=== PATIENT | male | born 1965 | race Caucasian/White ===

== ENCOUNTER → 2019-04-07 | Outpatient (CLI) | payer OTHER, BC ==
--- NOTE | 2019-04-08 22:18 | CT ---
EXAMINATION TYPE: CT iac w con DATE OF EXAM: 04/07/2019 COMPARISON: None HISTORY: 53-year-old male Ear canal mass. Hemangioma. Rule out glomus jugulare. CT DLP: 289 mGycm Automated exposure control for dose reduction was used. TECHNIQUE: Contiguous high-resolution axial scanning of the temporal bones performed with IV Contras t, patient injected with 100 ml mL of Isovue 300. Coronal reformatted images obtained. FINDINGS: There is no abnormality of visualized intracranial structures. Dominant left vertebral artery. The external auditory canals appear patent. The middle ear cavities and mastoid air cells appear well-pneumatized. Adjacent dural venous sinuses enhance normally. There is no abnormality of middle ear ossicles. The round and oval windows are normal. The right jugular bulb is borderline high riding, seen at the level of the basal turn of the cochlea and approximately 2 mm below the floor of the internal auditory canal. No evident dehiscence of the s igmoid plate. No evident enhancing lesion within the jugular foramen. No dehiscence of the superior semicircular canals. There is otherwise no abnormality of bony labyrint hs. The cochlear aqueducts are well visualized. No abnormal enlargement of the vestibular aqueducts. The facial nerve canal is normal bilaterally. The internal auditory canal and meati are symmetrical bilaterally. There is no evidence of fractures. Mild/moderate mucosal thickening maxillary sinuses and more moderate within the ethmoid air cells, pa rticularly on the left. Additional mucosal retention cyst or polyp posterior left ethmoid air cells. Orbits and globes appear intact. Reformatted images confirm above findings. IMPRESSION: 1. Borderline high riding right jugular bulb without evidence for dehiscence. 2. No enhancing mass identified within the external auditory canals, middle ear cavity, or jugular fo ramen. 3. Moderate chronic ethmoid sinus disease.
== END | disposition home or self-care (01) ==
LOC: RADCTMAIN 08:02
PROVIDERS: ATTEND Otolaryngology
DX: H61.899 Other specified disorders of external ear, unspecified ear (principal)
CPT/HCPCS: 70481; Q9967

== ENCOUNTER → 2023-09-12 | Outpatient (CLI) | payer BC ==
--- NOTE | 2023-09-12 16:55 | CTL ---
EXAMINATION TYPE: CT Low Dose Lung DATE OF EXAM ORDERED: 09/12/2023 HISTORY: . Lung cancer screening CT DLP: 120.[address] CTDI: 2.9 mGy Automated exposure control for dose reduction was used. COMPARISON: None TECHNIQUE: Low dose computed tomography scan was performed through the chest at 1 mm thick sections a nd reconstructed images in multiple planes at 1 mm and [address] DIAGNOSTIC QUALITY: Satisfactory FINDINGS: There is a 6-7 mm subpleural parenchymal nodule in the left lung base.. No other lung nodules are see n. There is no abnormal airspace/consolidative density or abnormal interstitial density. There is no pleural effusion, pleural thickening or pneumothorax. There is mild aneurysmal dilatation of descending thoracic aorta which is 4.1 cm. There is no mediastinal, hilar or axillary adenopathy. Limited scanning through the upper abdomen reveals no gross abnormality. No focal osseous lesions are seen. IMPRESSION: 1. BI-RADS Category 3 probably benign. Six-month follow-up CT thorax is recommended confirm stability of the left lower lobe pulmonary nodule. 2. No acute cardiopulmonary disease. 3. Mild fusiform aneurysmal dilatation of the ascending thoracic aorta which measures 4.1 cm.
--- NOTE | 2023-09-13 16:25 | US ---
EXAMINATION TYPE: US carotid duplex BILAT DATE OF EXAM: 09/12/2023 COMPARISON: NONE CLINICAL INDICATION: Male, 57 years old with history of I65.23 CAROTID STENOSIS; screen TECHNIQUE: Carotid duplex ultrasound examination. Indirect Doppler criteria was utilized. FINDINGS: EXAM MEASUREMENTS: RIGHT: Peak Systolic Velocity (PSV) cm/sec ----- Right CCA: 109 ----- Right ICA: 112 ----- Right ECA: 117 ICA/CCA ratio: 1.03 RIGHT: End Diastole cm/sec ----- Right CCA: 27 ----- Right ICA: 40.5 ----- Right ECA: 26.2 LEFT: Peak Systolic Velocity (PSV) cm/sec ----- Left CCA: 86.9 ----- Left ICA: 74.8 ----- Left ECA: 81.4 ICA/CCA ratio: 1.0 LEFT: End Diastole cm/sec ----- Left CCA: 26.2 ----- Left ICA: 23.2 ----- Left ECA: 21.4 VERTEBRALS (direction of flow): Right Vertebral: Antegrade Left Vertebral: Antegrade Rhythm: Normal [employer] NOTES: No significant stenosis seen IMPRESSION: Less than 50% stenosis of the bilateral carotid bifurcations. Criteria for Assigning % of Stenosis / Diameter reduction (Estimation based on the indirect measurements of the internal carotid artery velocities (ICA PSV). 1. Normal (no stenosis)=ICA PSV < 125 cm/s: ratio < 2.0: ICA EDV<40 cm/s. 2. Less than 50% stenosis=ICA PSV < 125 cm/s: ratio < 2.0: ICA EDV<40 cm/s. 3. 50 to 69% stenosis=ICA PSV of 125 to 230 cm/s: ration 2.0 ? 4.0: ICA EDV 40-100 cm/s. 4. Greater than 70% stenosis to near occlusion= ICA PSV > 230 cm/s: ratio > 4.0: ICA EDV > 100 cm/s. 5. Near occlusion= ICA PSV velocities may be low or undetectable: variable ratio and ICA EDV. 6. Total occlusion=unable to detect flow.
== END | disposition home or self-care (01) ==
LOC: RADCTMAIN 15:18
PROVIDERS: ATTEND Internal Medicine
DX: Z12.2 Encounter for screening for malignant neoplasm of respiratory organs (principal); I65.23 Occlusion and stenosis of bilateral carotid arteries; I71.21 Aneurysm of the ascending aorta, without rupture; F17.210 Nicotine dependence, cigarettes, uncomplicated
CPT/HCPCS: 71271; 93880

== ENCOUNTER → 2023-10-10 | Outpatient (CLI) | payer BC ==
--- NOTE | 2023-10-11 12:03 | CA ---
Transthoracic Echo Report Name: Ramon Whelan Age: 57 Gender: M : 1965 Exam Date: 10/10/2023 15:06 Exam Location: [facility] Ht (in): 70 Wt (lb): 178 Ordering Physician: Alee Dc MD Attending/Referring Phys: Sql Report Developer Adrianna Gross RDCS Procedure CPT: Indications: I71.20 THORACIC AORTIC ANEURYSM, WITHOUT RUPTURE, Cardiac Hx: Technical Quality: Contrast 1: Total Dose (mL): Contrast 2: Total Dose (mL): MEASUREMENTS (Male / Female) Normal Values 2D ECHO LV Diastolic Diameter PLAX 4.5 cm 4.2 - 5.9 / 3.9 - 5.3 cm LV Systolic Diameter PLAX 3.0 cm IVS Diastolic Thickness 0.7 cm 0.6 - 1.0 / 0.6 - 0.9 cm LVPW Diastolic Thickness 1.1 cm 0.6 - 1.0 / 0.6 - 0.9 cm LV Relative Wall Thickness 0.4 LVOT Diameter 2.6 cm LA Systolic Diameter LX 3.2 cm 3.0 - 4.0 / 2.7 - 3.8 cm LV Diastolic Volume MOD BP 86.4 cm??? 67 - 155 / 56 - 104 cm??? LV Systolic Volume MOD BP 56.2 cm??? 22 - 58 / 19 - 49 cm??? LV Ejection Fraction MOD BP 35.0 % >= 55 % LV Diastolic Volume MOD 4C 80.7 cm??? LV Systolic Volume MOD 4C 46.5 cm??? LV Ejection Fraction MOD 4C 42.4 % LV Diastolic Length 4C 7.9 cm LV Systolic Length 4C 6.3 cm LV Diastolic Volume MOD 2C 87.1 cm??? LV Systolic Volume MOD 2C 54.0 cm??? LV Ejection Fraction MOD 2C 38.0 % LV Diastolic Length 2C 8.4 cm LV Systolic Length 2C 8.2 cm LA Volume 31.8 cm??? 18 - 58 / 22 - 52 cm??? LA Volume Index 15.9 cm???/m??? 16 - 28 cm???/m??? DOPPLER AV Peak Velocity 91.3 cm/s AV Peak Gradient 3.3 mmHg AV Mean Velocity 65.8 cm/s AV Mean Gradient 1.9 mmHg AV Velocity Time Integral 14.6 cm LVOT Peak Velocity 81.4 cm/s LVOT Peak Gradient 2.7 mmHg LVOT Velocity Time Integral 13.1 cm LVOT Stroke Volume 69.6 cm??? LVOT Stroke Volume Index 35.0 ml/m??? AV Area Cont Eq vti 4.8 cm??? AV Area Cont Eq pk 4.7 cm??? MV Area PHT 4.4 cm??? Mitral E Point Velocity 48.9 cm/s Mitral A Point Velocity 72.2 cm/s Mitral E to A Ratio 0.7 MV Deceleration Time 174.4 ms PV Peak Velocity 65.1 cm/s PV Peak Gradient 1.7 mmHg FINDINGS Left Ventricle Left ventricular ejection fraction is estimated at 55-60%. Normal left ventricular systolic function with no obvious regional wall motion abnormalities. Right Ventricle Normal right ventricular size. Unable to estimate the right ventricular systolic pressure. Right Atrium Normal right atrial size. Left Atrium Normal left atrial size. Mitral Valve Trace mitral regurgitation. Aortic Valve Trileaflet aortic valve. Tricuspid Valve Trace tricuspid regurgitation. Pulmonic Valve No pulmonic regurgitation. Pericardium No pericardial effusion. Aorta Aorta at upper limits of normal. CONCLUSIONS Left ventricular ejection fraction is estimated at 55-60%. No obvious regional wall motion abnormalities. No significant valvular dysfunction Previewed by: Dr Rebel Paredes (Electronically Signed) Final Date: 11 October 2023 12:02
== END | disposition home or self-care (01) ==
LOC: RADECHMAIN 14:47
PROVIDERS: ATTEND Internal Medicine
DX: I71.20 Thoracic aortic aneurysm, without rupture, unspecified (principal)
CPT/HCPCS: 93306

== ENCOUNTER → 2023-10-20 | Outpatient (CLI) | payer BC ==
--- NOTE | 2023-10-21 10:49 | PE ---
EXAMINATION TYPE: PET CT fusion skull to thigh DATE OF EXAM: 10/20/2023 CLINICAL INDICATION:Male, 57 years old with history of R91.1 SOLITARY PULMONARY NODULE; TECHNIQUE: Following the intravenous administration of 10.89 mCi of F-18 FDG, whole body images are performed from the skull base to the midthigh. Images are reviewed on the computer in the coronal, axial, and sagittal planes. Reconstructed rotating images are created on independent workstation and reviewed on the computer. A non-contrast CT is performed in conjunction with the PET scan. Glucose level 101 mg/dL CT DLP: 500 mGycm, Automated exposure control for dose reduction was used. COMPARISON: CT 09/12/2023, PET/CT None, FINDINGS: Mediastinal SUV mean is 2.2. Hepatic parenchyma SUV mean is 3.1. SKULL BASE AND NECK: No suspicious radiotracer activity. CHEST, MEDIASTINUM, AND HILAR REGION: No suspicious radiotracer activity. Left lower lobe pulmonary nodule measuring 4 mm which is below the sensitivity for PET/CT the general area measures max SUV 1.0 which is below back on levels. ABDOMEN AND PELVIS: No suspicious radiotracer activity. MUSCULOSKELETAL STRUCTURES: No suspicious radiotracer activity. OTHER CT: Atherosclerosis of the carotid bifurcations. Severe coronary artery atherosclerosis. border line Hepatic steatosis. Normal. The prostate gland is enlarged. IMPRESSION: No suspicious radiotracer activity.Left lower lobe pulmonary nodule measuring 4 mm which is below the sensitivity for PET/CT. Follow-up CT chest recommended in 6 months to ensure stability.
== END | disposition home or self-care (01) ==
LOC: RADPETMAIN 06:14
PROVIDERS: ATTEND Internal Medicine
DX: R91.1 Solitary pulmonary nodule (principal)
CPT/HCPCS: 78815; A9552

== ENCOUNTER → 2024-02-13 | Outpatient (CLI) | payer BC ==
--- NOTE | 2024-02-13 14:38 | XR ---
EXAMINATION TYPE: XR cervical spine comp DATE OF EXAM: 02/13/2024 COMPARISON: NONE HISTORY: Pain TECHNIQUE: Four views are submitted. FINDINGS: The odontoid is intact. There are no compression deformities. The prevertebral soft tissue structur es are within normal limits. Severe multilevel degenerative disc disease with facet arthropathy and multilevel foraminal encroachment. Posterior spondylosis C5-6 and C6-C7. Canal stenosis not excluded. Partial fusion C3-C4 suspected posteriorly. Calcifications soft tissue the neck likely vascular related to the carotid arteries. Lung apices beka r. IMPRESSION: 1. Severe multilevel degenerative disc disease and facet arthropathy with multilevel foraminal encroa chment. Recommend follow-up MRI..
--- NOTE | 2024-02-13 14:41 | XR ---
EXAMINATION TYPE: XR shoulder complete RT DATE OF EXAM: 02/13/2024 COMPARISON: NONE HISTORY: Pain TECHNIQUE: Three views are submitted. FINDINGS: The osseous structures are intact. There is no acute fracture or dislocation. Mild AC joint arthropa thy with hypertrophic spurring of the acromion. Correlate for impingement. Mild glenohumeral joint ar thropathy. Chronic appearing sclerosis involving the upper margin of the humeral head may be on the b asis of prior trauma or reactive. IMPRESSION: 1. Mild glenohumeral and AC joint arthropathy. There is a spur extending from the acromion which may result in rotator cuff impingement or disease correlate clinically. Consider follow-up MRI.
== END | disposition home or self-care (01) ==
LOC: RADXRMAIN 14:12
PROVIDERS: ATTEND Internal Medicine
DX: M19.011 Primary osteoarthritis, right shoulder (principal); M47.812 Spondylosis without myelopathy or radiculopathy, cervical region; M50.30 Other cervical disc degeneration, unspecified cervical region
CPT/HCPCS: 72050

== ENCOUNTER → 2024-02-21 | Outpatient (CLI) | payer BC ==
--- NOTE | 2024-02-22 09:14 | MR ---
EXAMINATION TYPE: MR shoulder RT wo con DATE OF EXAM: 02/21/2024 COMPARISON: Right shoulder x-ray February 13, 2024 HISTORY: Right shoulder pain for 1 month. Impingement syndrome TECHNIQUE: Multiplanar, multisequence imaging of the right shoulder is performed without contrast. FINDINGS: Rotator Cuff: Increased signal in the supraspinatus and to a greater degree in the infraspinatus tend on. Heterogeneous increased signal with partial tearing of the superior fibers of the subscapularis t endon. Rotator cuff muscle bulk is preserved. Acromioclavicular Joint: Moderate to severe narrowing without significant spurring. No significant ca psular hypertrophy. Underlying fat plane maintained. Glenohumeral Joint: Small joint effusion. No significant spurring. Labrum: Blunting and heterogeneous increased signal consistent with degenerative tearing involving th e superior labrum. Biceps Tendon: The long head of biceps is in normal location within bicipital groove. Intracapsular p ortion is not well-visualized. Bone marrow signal: Extensive subchondral cystic change involving the posterior lateral aspect of the humeral head. Other: No additional significant abnormality is appreciated. IMPRESSION: 1. Tendinosis of the supraspinatus tendon. More prominent tendinosis and partial tearing of the infra spinatus and subscapularis tendons. 2. Degenerative superior labral tear.
== END | disposition home or self-care (01) ==
LOC: RADMRIMAIN 19:45
PROVIDERS: ATTEND Internal Medicine
DX: M75.41 Impingement syndrome of right shoulder (principal); M67.813 Other specified disorders of tendon, right shoulder; S46.011A Strain of muscle(s) and tendon(s) of the rotator cuff of right shoulder, initial encounter; M19.011 Primary osteoarthritis, right shoulder